=== PATIENT | male | born 1950 | race African-American/Black ===

== ENCOUNTER 2024-05-29 10:43 | Inpatient (IN) | payer OTHER ==
[2024-05-29 12:31] LABS: Absolute Basophils 0.1 K/uL (0-0.5); Absolute Lymphocytes (CBC) 0.6 K/uL (0.7-4.9); Absolute Monocytes 1.4 K/uL (0.1-1.3); Absolute Neutrophil 15.6 K/uL (1.8-8.0); Basophils % 0.3 % (0-1.3); Eosinophils % 0.2 % (0-4.4); Hematocrit 40.5 % (39.6-49.0); Hemoglobin 13.9 g/dL (13.6-17.9); Lymphocytes % 3.3 % (15.3-44.8); MCH 31.8 pg (27.0-35.0); MCHC 34.2 g/dL (32.0-36.0); MCV 92.8 fL (80-100); MPV 8.9 fL (7.6-11.3); Neutrophils % 88.2 % (41.7-73.7); Platelets 267 thou/uL (152-406); RBC Red Blood Cell Count 4.37 M/uL (4.33-5.43); Red Cell Distribution Width 13.9 % (12.1-15.2)
[2024-05-29 12:50] LABS: Albumin 3.1 g/dL (3.4-5.0); Albumin/Globulin Ratio 0.8 (1.1-1.8); Anion Gap 8.2 mEq/L (5.0-15.0); Globulin 4.1 g/dL (2.3-3.5); Protein, Total 7.2 g/dL (6.4-8.2)
[2024-05-29 12:51] LABS: Potassium 4.2 mEq/L (3.5-5.1)
[2024-05-29 13:25] LABS: Blood Morphology Comment NOT SEEN (NOT SEEN); Platelet Estimate ADEQ; White Blood Cell Scan OK (OK)
[2024-05-29 13:32] LABS: Specific Gravity 1.029 (1.005-1.030); Sqamous Epithelial <5 /HPF (None Seen); Transitional Epithelial <5 /HPF (None Seen); Urine Bacteria >50 /HPF (<20); Urine Bilirubin NEGATIVE (Negative); Urine Blood 2+ (Negative); Urine Clarity Extremely Turbid (Clear); Urine Color Yellow (Yellow); Urine Culture Reflex Order REFLEXED; Urine Glucose NEGATIVE (Negative); Urine Ketones NEGATIVE (Negative); Urine Microscopic Reflex YN ORDER UMIC; Urine Nitrite 2+ (Negative); Urine Protein 1+ (Negative); Urine Urobilinogen 1+ (Normal); Urine WBC >50 /HPF (<5); Urine pH 5.5 (5.0-7.0)
--- NOTE | 2024-05-29 14:06 | RAD REPORT ---
EXAMINATION: CT Abdomen Pelvis W Contrast CLINICAL INDICATION: Male, 74 years old. lower abd pain, urinary symptoms, hematuria TECHNIQUE: CT abdomen and pelvis was performed, after the administration of IV contrast, as per [facility] protocol. Axial, sagittal and coronal reconstructions were obtained. One or more of the following dose reduction techniques were used: Automated exposure control, adjustment of the mA and k V according to patient size, and iterative reconstruction. Unless otherwise specified, incidental findings do not require dedicated imaging follow-up. COMPARISON: None available FINDINGS: LOWER CHEST: The visualized lung bases are clear. Elevation of the right hemidiaphragm. LIVER: Normal in size and contour. Numerous fluid density lesions and other smaller lesions less than 1 cm, may suggest cysts. The largest lesions are in the right liver lobe, showing bilobed appearance, measuring 1.4-1.5 cm. No suspicious focal lesion. BILIARY SYSTEM: Gallbladder is somewhat decompressed limiting evaluation. Prominent common bile duct measuring up to 8 mm in caliber. SPLEEN: Normal size. No focal lesion. PANCREAS: Prominent caliber of the main pancreatic duct measuring 5 mm. An accessory mildly prominent duct extending superiorly in the region of the head as well. No mass, cyst, or joseph-pancreatic fluid. ADRENALS: Normal; no mass. KIDNEYS: Normal size and contour. No hydronephrosis. Nonobstructing left superior pole 3 mm calculus. Few vascular calcifications noted URINARY BLADDER: Unremarkable. GASTROINTESTINAL TRACT: No evidence of free air, significant intra-abdominal free fluid, bowel obstru ction or abscess. Moderate stool burden throughout the colon. Nonspecific fluid opacification of nondistended small bowel loops in the pelvis. APPENDIX: Normal appendix. LYMPH NODES: No lymphadenopathy. MUSCULOSKELETAL: No acute or suspicious osseous abnormality. ADDITIONAL FINDINGS: Prostatomegaly. Vascularized exophytic skin lesion in the right groin at the bas e of the scrotum with frond-like projections, measuring 4.8 x 3.7 cm in greatest transverse and AP dimensions, and 5.9 cm in greatest clinical extent. IMPRESSION: Nonspecific fluid opacification of nondistended small bowel loops in the pelvis, may reflect diarrhea l state or mild enteritis. Moderate stool burden in the colon. Prominent caliber of the common bile duct and main pancreatic duct. Please correlate with bilirubin l evels. If there is suspicion for distal obstruction, consider gastroenterology evaluation, to determine if MRCP or ERCP is needed. Vascularized exophytic skin lesion in the right groin with frond-like projections as above, may repre sent a hemangioma or other benign entity.
--- NOTE | 2024-05-29 14:15 | ER ---
Nurse's Notes [facility] Name: Lopez Oneill Age: 74 yrs Sex: Male : 1950 Arrival Date: 05/29/2024 Time: 10:43 Bed 16 Private MD: Diagnosis: Acute prostatitis;Localized swelling, mass and lump, right lower limb Presentation: 05/29 10:58 Chief complaint: Patient states: blood in urine and pain with urination X 1 week and iw also I had a cyst in my groin area. Coronavirus screen: At this time, the client does not indicate any symptoms associated with coronavirus-19. Ebola Screen: No symptoms or risks identified at this time. Initial Sepsis Screen: Does the patient meet any 2 criteria? No. Patient's initial sepsis screen is negative. Does the patient have a suspected source of infection? No. Patient's initial sepsis screen is negative. Risk Assessment: Do you want to hurt yourself or someone else? Patient reports no desire to harm self or others. Onset of symptoms was May 22, 2024. 10:58 Method Of Arrival: Wheelchair iw 10:58 Acuity: TRI 3 iw Triage Assessment: 16:18 General: Behavior is calm. db Historical: - Allergies: 11:01 No Known Allergies; iw - Home Meds: 11:02 None [Active]; iw - PMHx: 11:01 None; iw - Immunization history:: Adult Immunizations not up to date. - Infectious Disease History:: Denies. - Social history:: Smoking status: Patient reports the use of cigarette tobacco products, smokes one pack cigarettes per day. - Family history:: not pertinent. - Hospitalizations: : No recent hospitalization is reported. Screenin:29 [facility] ED Fall Risk Assessment (Adult) History of falling in the last 3 months, iw including since admission No falls in past 3 months (0 pts) Confusion or Disorientation No (0 pts) Intoxicated or Sedated No (0 pts) Impaired Gait No (0 pts) Mobility Assist Device Used No (0 pt) Altered Elimination No (0 pt) Score/Fall Risk Level 0 - 2 = Low Risk Oriented to surroundings, Maintained a safe environment. Abuse screen: Denies threats or abuse. Denies injuries from another. Nutritional screening: No deficits noted. Tuberculosis screening: No symptoms or risk factors identified. Assessment: 12:20 General: Appears in no apparent distress. comfortable. Neuro: Level of Consciousness is iw awake, alert, obeys commands, Oriented to person, place, time, situation. Respiratory: Airway is patent Respiratory effort is even, unlabored, Respiratory pattern is regular, symmetrical. GI: Reports lower abdominal pain. 12:28 Reassessment: Patient appears in no apparent distress at this time. Patient and/or iw family updated on plan of care and expected duration. Pain level reassessed. Patient is alert, oriented x 3, equal unlabored respirations, skin warm/dry/pink. 15:04 Reassessment: Patient appears in no apparent distress at this time. Patient and/or db family updated on plan of care and expected duration. Pain level reassessed. Patient is alert, oriented x 3, equal unlabored respirations, skin warm/dry/pink. AIR BRAKE MAN JOEY AT PATIENT BEDSIDE. Vital Signs: 10:58 BP 130 / 90; Pulse 100; Resp 18; Temp 98.5; Pulse Ox 100% on R/A; iw 11:00 Weight 68.04 kg; Height 5 ft. 10 in. ; iw 13:38 BP 158 / 100; Pulse 90; Resp 16; Pulse Ox 98% on R/A; db 14:00 BP 144 / 88; Pulse 86; Resp 18; Pulse Ox 98% on R/A; db 14:30 BP 153 / 98; Pulse 90; Resp 18; Pulse Ox 98% on R/A; db 15:00 BP 132 / 87; Pulse 87; Resp 18; Pulse Ox 97% ; db 16:00 BP 146 / 86; Pulse 87; Resp 16; Pulse Ox 98% on R/A; db 11:00 Body Mass Index 21.52 (68.04 kg, 177.8 cm) iw Vitals: 15:03 Cardiac Rhythm Assessment Regular Sinus rhythm. db ED Course: 10:48 Patient arrived in ED. ra3 10:50 Adam Cummins MD is Attending Physician. rn 11:00 Triage completed. iw 11:01 Arm band placed on. iw 11:31 Carol Seth, RN is Primary Nurse. db 11:31 CBC with Diff Sent. bc6 11:31 CMP Sent. bc6 11:31 Missed attempt(s): 20 gauge in left forearm. Bleeding controlled, band aid applied, bc6 catheter tip intact. 12:18 Patient has correct armband on for positive identification. Bed in low position. Call iw light in reach. Side rails up X 1. Pillow given. 12:18 Missed attempt(s): 22 gauge in left forearm. Bleeding controlled, band aid applied, iw catheter tip intact. 12:24 Initial lab(s) drawn, by me, sent to lab. Inserted saline lock: 22 gauge in left iw forearm, using aseptic technique. Blood collected. Flushed with 10 mL NS. 12:[address] via wheelchair. iw 13:01 CT Abd/Pelvis - IV Contrast Only In Process Unspecified. EDMS 14:14 Colton Aragon MD is Hospitalizing Provider. rn 15:03 First set of blood cultures drawn by lab staff. Second set of blood cultures drawn by db lab staff. 16:17 Provided Education on: ADMISSION. Client placed on continuous cardiac and pulse db oximetry monitoring. NIBP monitoring applied. shelter monitor on. Pulse ox on. NIBP on. 16:17 No provider procedures requiring assistance completed. Patient admitted, IV remains in db place. Administered Medications: 14:55 Drug: Rocephin IV 1 grams IV at calculated rate once; Given slow IV push per pharmacy db instructions Route: IV; Rate: calculated rate; Site: left forearm; 15:30 Follow up: Response: No adverse reaction; IV Status: Completed infusion; IV Intake: 50mldb Medication: 12:53 VIS not applicable for this client. iw Intake: 15:30 IV: 50ml; Total: 50ml. db Outcome: 14:14 Decision to Hospitalize by Provider. rn 16:17 Admitted to ER Hold. Please see [facility] for further documentation. db 16:17 Condition: stable 16:17 Instructed on the need for admit, 16:19 Patient left the ED. db Signatures: Dispatcher [employer] EDSandra Mejia, Adam Sheridan RN, MD MD rn Benton, Danielle, RN RN db Lissa Sanchez 6 Chiquita Jimenez ra3
--- NOTE | 2024-05-29 14:15 | EDPHYS ---
Physician Documentation [facility] Name: Lopez Oneill Age: 74 yrs Sex: Male : 1950 Arrival Date: 05/29/2024 Time: 10:43 Bed 16 Private MD: ED Physician Adam Cummins HPI: 05/29 12:04 This 74 yrs old Black Male presents to ER via Wheelchair with complaints of Blood in rn urine with abd pain. 12:04 The patient presents with urinary symptoms, urinary frequency. Onset: The rn symptoms/episode began/occurred 1 week(s) ago. Modifying factors: The symptoms are alleviated by nothing, the symptoms are aggravated by urinating. Associated signs and symptoms: Pertinent positives: abdominal pain, hematuria, Pertinent negatives: fever. Severity of symptoms: At their worst the symptoms were mild, in the emergency department the symptoms are unchanged. The patient has not experienced similar symptoms in the past. The patient has not recently seen a physician. Historical: - Allergies: 11: No Known Allergies; iw - Home Meds: 11:02 None [Active]; iw - PMHx: 11: None; iw - Immunization history:: Adult Immunizations not up to date. - Infectious Disease History:: Denies. - Social history:: Smoking status: Patient reports the use of cigarette tobacco products, smokes one pack cigarettes per day. - Family history:: not pertinent. - Hospitalizations: : No recent hospitalization is reported. ROS: 12:04 Constitutional: Negative for fever, chills, and weight loss, Cardiovascular: Negative rn for chest pain, palpitations, and edema, Respiratory: Negative for shortness of breath, cough, wheezing, and pleuritic chest pain, Abdomen/GI: Positive for lower abdominal pain Back: Negative for injury and pain, : Positive for intermittent hematuria with dysuria and increased urinary frequency MS/Extremity: Negative for injury and deformity, Neuro: Negative for headache, weakness, numbness, tingling, and seizure, Exam: 12:04 Constitutional: This is a well developed, well nourished patient who is awake, alert, rn and in no acute distress. Cardiovascular: Regular rate and rhythm. No pulse deficits. Respiratory: No increased work of breathing, no retractions or nasal flaring. Abdomen/GI: Soft, mild suprapubic tenderness. No rebound or guarding. Skin: Large fungating mass right inguinal region that abuts scrotum but does not involve the scrotum proper. MS/ Extremity: Pulses equal, no cyanosis. Neuro: Awake and alert, GCS 15 14:59 ECG was reviewed by the Attending Physician. rn Vital Signs: 10:58 BP 130 / 90; Pulse 100; Resp 18; Temp 98.5; Pulse Ox 100% on R/A; iw 11:00 Weight 68.04 kg; Height 5 ft. 10 in. ; iw 13:38 BP 158 / 100; Pulse 90; Resp 16; Pulse Ox 98% on R/A; db 14:00 BP 144 / 88; Pulse 86; Resp 18; Pulse Ox 98% on R/A; db 14:30 BP 153 / 98; Pulse 90; Resp 18; Pulse Ox 98% on R/A; db 15:00 BP 132 / 87; Pulse 87; Resp 18; Pulse Ox 97% ; db 16:00 BP 146 / 86; Pulse 87; Resp 16; Pulse Ox 98% on R/A; db 11:00 Body Mass Index 21.52 (68.04 kg, 177.8 cm) iw MDM: 10:50 Medical Screening Exam initiated rn 14:13 Differential diagnosis: nonspecific abdominal pain, UTI, prostatitis, Skin malignancy rn right inguinal region. Data reviewed: vital signs, nurses notes, lab test result(s), radiologic studies, CT scan, and as a result, I will admit patient. Consideration of Admission/Observation Patient was admitted/placed on observation. Escalation of care including admission/observation considered. Counseling: I had a detailed discussion with the patient and/or guardian regarding the historical points, exam findings, and any diagnostic results supporting the discharge/admit diagnosis, lab results, radiology results, the need for further work-up and treatment in the hospital. Response to treatment: the patient's symptoms have mildly improved after treatment, and as a result, I will admit patient. 05/29 11:02 Order name: CBC with Diff; Complete Time: 13:27 rn 05/29 11:02 Order name: CMP; Complete Time: 13:27 rn 05/29 11:02 Order name: Urinalysis w/ reflexes; Complete Time: 13:56 rn 05/29 12:49 Order name: CBC Smear Scan; Complete Time: 13:27 EDMS 05/29 13:36 Order name: Urine Culture [facility] 05/29 13:57 Order name: Blood Culture Adult (2) rn 05/29 13:57 Order name: Lactate w/ 2H reflex if indic. rn 05/29 13:57 Order name: Protime (+inr) rn 05/29 13:57 Order name: Ptt, Activated rn 05/29 14:40 Order name: CBC with Automated Diff [facility] 05/29 14:40 Order name: CBC with Automated Diff [facility] 05/29 14:40 Order name: Comprehensive Metabolic Panel [facility] 05/29 14:40 Order name: Comprehensive Metabolic Panel [facility] 05/29 14:40 Order name: Procalcitonin [facility] 05/29 14:40 Order name: Procalcitonin [facility] 05/29 14:40 Order name: PSA Screen [facility] 05/29 14:40 Order name: PSA Screen [facility] 05/29 11:02 Order name: CT Abd/Pelvis - IV Contrast Only; Complete Time: 14:12 05/29 13:57 Order name: EKG; Complete Time: 13:58 05/29 11:02 Order name: IV Saline Lock; Complete Time: 12:27 rn 05/29 11:02 Order name: Labs collected and sent; Complete Time: 11:31 rn 05/29 11:52 Order name: Labs - recollect needed: recollect lavender and green top; Complete Time: bd 12:27 05/29 13:57 Order name: Cardiac monitoring; Complete Time: 15:02 rn 05/29 13:57 Order name: EKG - Nurse/Tech; Complete Time: 15:02 rn 05/29 13:57 Order name: IV Saline Lock - Large Bore; Complete Time: 15:02 rn 05/29 13:57 Order name: O2 Per Protocol; Complete Time: 15:02 rn 05/29 13:57 Order name: O2 Sat Monitoring; Complete Time: 15:02 rn 05/29 13:57 Order name: Vital Signs; Complete Time: 15:02 rn EC:59 Rate is 85 beats/min. Rhythm is regular. QRS [place] is Normal. VA interval is normal. QRS rn interval is normal. QT interval is normal. No Q waves. T waves are Normal. No ST changes noted. Clinical impression: Normal ECG. Interpreted by me. Reviewed by me. Administered Medications: 14:55 Drug: Rocephin IV 1 grams IV at calculated rate once; Given slow IV push per pharmacy db instructions Route: IV; Rate: calculated rate; Site: left forearm; 15:30 Follow up: Response: No adverse reaction; IV Status: Completed infusion; IV Intake: 50mldb Disposition Summary: 05/29/24 14:14 Hospitalization Ordered Notes: Hospitalization Status: Inpatient Admission rn Provider: Colton Aragon rn Location: Telemetry/MedSurg (Inpatient) rn Condition: Stable rn Problem: new rn Symptoms: have improved rn Bed/Room Type: Standard rn Room Assignment: 207(05/29/24 15:02) bd Diagnosis - Acute prostatitis rn - Localized swelling, mass and lump, right lower limb rn Forms: - Medication Reconciliation Form rn - SBAR form rn - Leadership Thank You Letter rn Signatures: Dispatcher [employer] [facility] Lila Estrada Irene, RN RN iw Nieto, Roman, MD MD rn Benton, Danielle, RN RN db Corrections: (The following items were deleted from the chart) 12:49 12:43 Slides for Pathologist Review ordered. [facility] 13:12 12:04 Constitutional: This is a well developed, well nourished patient who is awake, rn alert, and in no acute distress. Cardiovascular: Regular rate and rhythm. No pulse deficits. Respiratory: No increased work of breathing, no retractions or nasal flaring. Abdomen/GI: Soft, mild suprapubic tenderness. No rebound or guarding. MS/ Extremity: Pulses equal, no cyanosis. Neuro: Awake and alert, GCS 15 rn 15:02 13:57 Accucheck ordered. rn db 15:02 14:14 rn bd
[2024-05-29] MEDS ORDERED: HYDROMORPHONE HCL 0.5 MG/0.5 ML INJ IV PRN (14:34)
[2024-05-29] MEDS ORDERED: ACETAMINOPHEN 500 MG TAB PO PRN (14:34)
[2024-05-29] MEDS ORDERED: ONDANSETRON 4 MG/2 ML VIAL IV PRN (14:34)
[2024-05-29] MEDS ORDERED: MORPHINE 2 MG/ML SYR IV PRN (14:34)
[2024-05-29] MEDS ORDERED: CEFTRIAXONE 1000 MG/VIAL ONE (14:36)
[2024-05-29] MEDS ORDERED: NA CHLORIDE 0.9% 50 ML ONE (14:36)
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
[2024-05-29] MEDS: Levofloxacin 750mg IV 750 MG/150 ML BAG IV SCH (15:00)
[2024-05-29 15:29] LABS: PT Prothrombin Time 11.8 SECONDS (9.4-12.5); PTT, Activated Partial Thromb 29.8 SECONDS (24.3-36.9); Protime INR 1.13
[2024-05-29] MEDS: NA CHLORIDE 0.9% 1,000 ML IV SCH (16:56)
[2024-05-29] MEDS: VANCOMYCIN 1.25 GM in NA CHLORIDE 0.9% 250 ML IVPB SCH (16:57)
[2024-05-29] MEDS: levoFLOXacin 750 MG TAB PO SCH (23:09)
[2024-05-30] MEDS: HYDROCODONE/APAP 10/325 TAB PO PRN (03:43)
[2024-05-30 06:23] LABS: Absolute Basophils 0.1 K/uL (0-0.5); Absolute Eosinophils 0.2 K/uL (0-0.5); Absolute Lymphocytes (CBC) 0.7 K/uL (0.7-4.9); Absolute Monocytes 1.5 K/uL (0.1-1.3); Absolute Neutrophil 9.9 K/uL (1.8-8.0); Albumin 2.6 g/dL (3.4-5.0); Albumin/Globulin Ratio 0.7 (1.1-1.8); Basophils % 0.9 % (0-1.3); Bilirubin Total 0.9 mg/dL (0.2-1.0); Eosinophils % 1.7 % (0-4.4); Globulin 3.7 g/dL (2.3-3.5); Hematocrit 31.6 % (39.6-49.0); Hemoglobin 10.6 g/dL (13.6-17.9); Lymphocytes % 5.8 % (15.3-44.8); MCH 31.1 pg (27.0-35.0); MCHC 33.7 g/dL (32.0-36.0); MCV 92.3 fL (80-100); MPV 9.8 fL (7.6-11.3); Monocytes % 12.4 % (3.3-12.3); Neutrophils % 79.2 % (41.7-73.7); Platelets 241 thou/uL (152-406); Protein, Total 6.3 g/dL (6.4-8.2); RBC Red Blood Cell Count 3.42 M/uL (4.33-5.43); Red Cell Distribution Width 13.8 % (12.1-15.2)
--- NOTE | 2024-05-30 15:58 | P.PN ---
Subjective Date of Service: 05/30/24 Chief Complaint: Dysuria x 4 days Subjective: No new changes Review of Systems 10-point ROS is otherwise unremarkable General: As per HPI Eyes: Unremarkable ENT: Unremarkable Respiratory: Unremarkable Cardiovascular: Unremarkable Gastrointestinal: Unremarkable Genitourinary: Dysuria, Other (post void, "maybe a little sore" when asked about rectal pain) Musculoskeletal: Unremarkable Integumentary: Unremarkable Neurological: Unremarkable Lymphatics: Unremarkable Physical Examination - Vital Signs Temperature: 98.2 F Blood Pressure: 113/65 Pulse: 85 Respirations: 20 Pulse Ox (%): 95 - Physical Exam General: Alert, In no apparent distress, Oriented x3 HEENT: Atraumatic, Normocephalic Neck: Supple Respiratory: Clear to auscultation bilaterally, Other (Pectus carinatum) Cardiovascular: Normal pulses, Regular rate/rhythm Capillary refill: <2 Seconds Gastrointestinal: Normal bowel sounds, Tenderness (Lower abdomen and suprapubic area) Musculoskeletal: No clubbing, No swelling Integumentary: Other (Condyloma to right groin) Neurological: Normal speech, Normal tone, Normal affect Lymphatics: No axilla or inguinal lymphadenopathy External genitalia: Deferred Rectal: Deferred - Studies Microbiology Data (last 24 hrs): 05/29/24 14:30 Blood - Blood Anaerobic Blood Culture - Final Assessment And Plan - Plan UTI/acute prostatitis Patient does not appear excessively ill Urine culture 4+ gram-negative rods Blood cultures 1 of 2 pending aerobic positive IV antibiotics Vanco n.p.o. Levaquin as IV Levaquin not available at this facility at the moment; follow cultures and change based on sensitivities Avoid constipation Stool softeners as needed PSA is greater than [address] Castano will be consulted, avoid Strict I&O Condyloma Follow-up outpatient for possible laser/desiccant treatment High blood pressure without current history of hypertension Patient used to take lisinopril, monitor and trend VTE/GI prophylaxis Discharge Plan: Home Plan to discharge in: 48 Hours - Code Status/Comfort Care Code Status Assessed: Yes (full) Critical Care: No
--- NOTE | 2024-05-30 16:17 | CON ---
Date of Consultation: 05/30/2024 Reason For Consultation: Growth, right groin. History Of Present Illness: The patient is a 74-year-old gentleman, who is brought into the hospital from the ER with UTI. He had dysuria for 4 days. The patient also has a growth in his right groin, which has been present for a couple of months. It is a fungating mass at the base of his penis and scrotum, it is getting larger. We were asked to evaluate this patient to make further recommendation . The patient does have a history of multiple sexual partners in the past, but none recently. Review of Systems: Otherwise unremarkable. Past Medical History: Significant for herniated disk. Past Surgical History: Back surgery. Allergies: DEMEROL. Social History: The patient does smoke, has been counseled. The patient denies drinking alcohol. Family History: Significant for hypertension. Physical Examination: Vital Signs: Stable. Currently, T-max is 99.1. General: He is awake and alert. Neck: No neck masses. No JVD. Throat clear. Neck is supple. Chest: Clear. Heart: S1, S2. Abdomen: Soft. Extremities: Neurovascularly intact. Neurologic: Nonfocal. : Approximately a 6 x 4 cm exophytic growth at the base of the penis and right hemiscrotum on the right side involving the skin of the penis as well as the scrotum. Laboratory Data: Reviewed. White count is 12.4 today, was 17.7. Chemistry reviewed. Urinalysis: Cultures growing gram-negative anupama. Etiology has not been identified yet. 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 Recommendations: Antibiotics per the hospitalist and management of the UTI. As far as the mass is c oncerned, I would recommend evaluation by urologist as the base of the mass is on the penis and scrot um, and the patient would need a wide excision and may compromise the function of the penis, and it s hould be handled in my opinion by urologist. Plan of care discussed with Dr. Syed. EMERALD/ANNA MARIE Voice ID: [id number] Report ID: [id number]
[2024-05-30 16:56] VITALS: BMI 21.5
--- NOTE | 2024-05-30 17:11 | CON ---
History Of Present Illness: This is a 74-year-old male, I was consulted for urinary tract infection secondary to gram-negative rods, the sensitivity and specificity is pending. Patient was brought int o the hospital with complaint of hematuria and discomfort during urination and nocturia. Patient den ies any nausea, vomiting. Also has abdominal pain and fevers. Denies any other problems. Past Medical History: Noncontributory. Past Surgical History: Noncontributory. Social History: Nonsmoker. Nondrinker. Family History: Noncontributory. Current Medications: Includes vancomycin and Levaquin. See MARs for other medications. Allergies: TO MEPERIDINE. Review of Systems: A 10-point review was performed. Physical Examination: General: This is a 74-year-old male, lying in bed, not in any acute cardiopulmonary distress. Vital Signs: Temperature 97.9, pulse 71, respirations 20, blood pressure 139/81. HEENT: Unremarkable. Neck: Supple. Lungs: Basal crackles. Heart: S1, S2. Abdomen: Soft, nontender. Bowel sounds present. Extremities: No edema. Laboratory Data: Shows WBC 12,000 down from 17,000, hemoglobin 10.6, platelets are 241. Chemistry s hows BUN of 19, creatinine 0.6, albumin level of 3.1. Micro data: Blood cultures are pending. Urin e culture growing gram-negative rods. CT abdomen and pelvis is showing nonspecific fluid opacificati on of nondistended small bowel loops, prominent caliber of the common bile duct, main pancreatic duct with the visualized exophytic skin lesions in the right groin with frond like projections. Assessment And Plan: Urosepsis secondary to gram-negative rods. Cultures are pending for sensitivit y and specificity. Leukocytosis, improving. Moderate protein-calorie malnourishment. Patient is cu rrently being treated with vancomycin and Levaquin. Consider discontinuing vancomycin. Continue ant ibiotic, pending culture results. If no bacteremia, can be treated for 5 days. Continue hydration a nd nutritional support. We will follow the patient as needed. Thank you, Dr. Syed, for consult. NF/MODL Voice ID: [id number] Report ID: [id number]
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
[2024-05-31] MEDS: NICOTINE 21 MG/PAT TD SCH (05:09)
[2024-05-31 07:03] LABS: Albumin 2.5 g/dL (3.4-5.0); Albumin/Globulin Ratio 0.7 (1.1-1.8); Bilirubin Total 0.4 mg/dL (0.2-1.0); Globulin 3.7 g/dL (2.3-3.5); Protein, Total 6.2 g/dL (6.4-8.2)
[2024-05-31 07:04] LABS: Absolute Eosinophils 0.3 K/uL (0-0.5); Absolute Neutrophil 4.1 K/uL (1.8-8.0); Basophils % 0.6 % (0-1.3); Eosinophils % 5.2 % (0-4.4); Hematocrit 32.1 % (39.6-49.0); Hemoglobin 10.9 g/dL (13.6-17.9); Lymphocytes % 15.8 % (15.3-44.8); MCH 31.2 pg (27.0-35.0); MCHC 33.9 g/dL (32.0-36.0); MCV 92.2 fL (80-100); MPV 9.5 fL (7.6-11.3); Monocytes % 15.8 % (3.3-12.3); Neutrophils % 62.6 % (41.7-73.7); Platelets 239 thou/uL (152-406); RBC Red Blood Cell Count 3.48 M/uL (4.33-5.43); Red Cell Distribution Width 13.2 % (12.1-15.2)
--- NOTE | 2024-05-31 07:54 | P.PN ---
Date of Service: 05/31/24 Subjective Date of Service: 05/31/24 Chief Complaint: Dysuria x 4 days Subjective: No new changes Review of Systems 10-point ROS is otherwise unremarkable General: As per HPI Eyes: Unremarkable ENT: Unremarkable Respiratory: Unremarkable Cardiovascular: Unremarkable Gastrointestinal: Unremarkable Genitourinary: Dysuria, Other (post void, "maybe a little sore" when asked about rectal pain) Musculoskeletal: Unremarkable Integumentary: Unremarkable Neurological: Unremarkable Lymphatics: Unremarkable Physical Examination - Vital Signs reviewed, blood pressure controlled, afebrile - Physical Exam General: Alert, In no apparent distress, Oriented x3 HEENT: Atraumatic, Normocephalic Neck: Supple Respiratory: Clear to auscultation bilaterally, Other (Pectus carinatum) Cardiovascular: Normal pulses, Regular rate/rhythm Capillary refill: <2 Seconds Gastrointestinal: Normal bowel sounds, Tenderness (Lower abdomen and suprapubic area) Musculoskeletal: No clubbing, No swelling Integumentary: Other (Condyloma to right groin) Neurological: Normal speech, Normal tone, Normal affect Lymphatics: No axilla or inguinal lymphadenopathy External genitalia: Deferred Rectal: Deferred Assessment And Plan UTI/acute prostatitis Patient does not appear excessively ill Urine culture 4+ gram-negative rods - ESBL E. coli Blood cultures 1 of 2 pending aerobic positive gram neg rods - awaiting pathogen IV antibiotics Vanco and p.o. Levaquin as IV Levaquin not available at this facility at the moment; follow cultures and change based on sensitivities Avoid constipation Stool softeners as needed PSA is greater than 30 Dr. Castano consulted for LUTS/UTI/elevated PSA. Would like evaluation for prostate abscess if pt not improving. Mr. Oneill has remained afebrile, nontoxic-appearing. White count down from 17 to 6.5 with vancomycin and Levaquin. Urine culture returned with ESBL E. coli. Resistant to Levaquin. Will change to Merrem. Patient will need long-term IV antibiotics (Merrem) but will withhold PICC until bacteremia ruled out. 1 of 2 cultures positive for gram-negative rods. Will need to await final culture results. Strict I&O Postvoid residual, if greater than 400-[address] [place]er. Condyloma/mass Follow-up outpatient for possible laser/desiccant treatment Dr. Padilla evaluated mass and feels it would be better managed per urology Dr. Castano evaluated pt and recommends vascular/general surgery for mass as it appears vascular per CT High blood pressure without current history of hypertension Patient used to take lisinopril, monitor and trend Blood pressure controlled VTE/GI prophylaxis Discharge Plan: Home Plan to discharge in: 48 Hours - Code Status/Comfort Care Code Status Assessed: Yes (full) Critical Care: No
[2024-05-31] MEDS: Meropenem 1,000 MG in NA CHLORIDE 0.9% 100 ML IV SCH (08:51)
[2024-05-31 10:56] LABS: Band Neutrophils 2 % (0-1); Blood Morphology Comment NOT SEEN (NOT SEEN); Differential Total Cells Count 100; Eosinophils 3 % (0-3); Lymphocytes 16 % (15-42); Monocytes 13 % (0-10); Platelet Estimate ADEQ; Segmented Neutrophils 64 % (40-80)
--- NOTE | 2024-05-31 16:43 | PN ---
Subjective: The patient is lying in bed. No new acute event. Chart reviewed. Objective: Vital signs: Reviewed. Lungs: Basal crackles. Heart: S1, S2. Regular. Abdomen: Soft, nontender. Bowel sounds present. Extremities: No edema. Laboratory Data: WBC 6.5, down from 12,000; hemoglobin 10.9; platelets are 239. Chemistry shows BU N of 22, creatinine 0.5. Micro data; E coli ESBL in the urine and blood cultures are positive for gr am-negative rods. Sensitivity and specificity pending. Assessment And Plan: Extended-spectrum beta-lactamase Escherichia coli bacteremia and urosepsis. Co ntinue 14 days of meropenem. He will be switched to Invanz on discharge to complete the course with daily dosing. Leukocytosis is improved. We will follow the patient as needed. NF/MODL Voice ID: [id number] Report ID: [id number]
[2024-05-31] MEDS: TAMSULOSIN 0.4 MG SR CAP PO SCH (20:34)
--- NOTE | 2024-06-01 12:02 | EKG ---
Test Date: 2024-05-29 Test Time: 14:55:08 Press Bucker: SASHA MEASUREMENT RESULTS: Intervals: Rate: 85 AL: 148 QRSD: 70 QT: 358 QTc: 426 [place]: P: 81 AL: 148 QRS: 39 T: 90 INTERPRETIVE STATEMENTS: Normal sinus rhythm Normal ECG Compared to ECG 03/21/2015 11:59:30 No significant changes Electronically Signed On 06-01-24 12:00:28 CONCRETE GRINDER OPERATOR by See Hopson
--- NOTE | 2024-06-01 12:30 | P.PN ---
Date of Service: 06/01/24 Subjective Date of Service: 05/31/24 Chief Complaint: Dysuria x 4 days Subjective: No new changes Review of Systems 10-point ROS is otherwise unremarkable General: As per HPI Eyes: Unremarkable ENT: Unremarkable Respiratory: Unremarkable Cardiovascular: Unremarkable Gastrointestinal: Unremarkable Genitourinary: Dysuria, Other (post void, "maybe a little sore" when asked about rectal pain) Musculoskeletal: Unremarkable Integumentary: Unremarkable Neurological: Unremarkable Lymphatics: Unremarkable Physical Examination - Vital Signs reviewed, blood pressure controlled, afebrile - Physical Exam General: Alert, In no apparent distress, Oriented x3 HEENT: Atraumatic, Normocephalic Neck: Supple Respiratory: Clear to auscultation bilaterally, Other (Pectus carinatum) Cardiovascular: Normal pulses, Regular rate/rhythm Capillary refill: <2 Seconds Gastrointestinal: Normal bowel sounds, Tenderness (Lower abdomen and suprapubic area) Musculoskeletal: No clubbing, No swelling Integumentary: Other (Condyloma to right groin) Neurological: Normal speech, Normal tone, Normal affect Lymphatics: No axilla or inguinal lymphadenopathy External genitalia: Deferred Rectal: Deferred Assessment And Plan UTI/acute prostatitis Patient does not appear excessively ill Urine culture 4+ gram-negative rods - ESBL E. coli Blood cultures 1 of 2 pending aerobic positive gram neg rods - awaiting pathogen IV antibiotics Vanco and p.o. Levaquin, changed on 05/31/24 to Merrem as UC shows E.coli ESBL - pt will need 14 day course second to bacteremia. Dr. Faustin following Avoid constipation Stool softeners as needed PSA is greater than 30, Dr. Castano following Dr. Castano consulted for LUTS/UTI/elevated PSA. Would like evaluation for prostate abscess if pt not improving. Mr. Oneill has remained afebrile, nontoxic-appearing. White count down from 17 to 6.5 with vancomycin and Levaquin. Urine culture returned with ESBL E. coli. Resistant to Levaquin. Will change to Merrem. Patient will need long-term IV antibiotics (Merrem) but will withhold PICC until bacteremia ruled out. 1 of 2 cultures positive for gram-negative rods. Will need to await final culture results. Strict I&O Postvoid residual, if greater than 400-[address] Condyloma/mass Dr. Padilla evaluated mass and feels it would be better managed per urology Dr. Castano evaluated pt and recommends vascular/general surgery for mass as it appears vascular per CT The surgical team above will do procedure together on Wednesday06/06/24 High blood pressure without current history of hypertension Patient used to take lisinopril, monitor and trend Blood pressure controlled VTE/GI prophylaxis Discharge Plan: Home Plan to discharge in: 48 Hours - Code Status/Comfort Care Code Status Assessed: Yes (full) Critical Care: No <Caitlin Barros - Last Filed: 06/01/24 13:00> Patient seen and examined, plan of care discussed with Ms. Barros. ESBL E. coli UTI and E. coli bacteremia. Patient has clinically improved. Continue IV meropenem. Patient slated for outpatient IV Invanz. Regarding right groin/scrotal condylomatous mass, general surgery Dr. Padilla and urology Dr. Castano evaluating for possible surgery. PICC line for outpatient IV antibiotics once repeat blood culture does not show any growth. <mike roa - Last Filed: 06/01/24 18:54>
--- NOTE | 2024-06-01 17:50 | PN ---
Subjective: Patient is lying in bed. No new acute event. Denies any headache, nausea, vomiting, ch est pain, abdominal pain, constipation, or diarrhea. Objective: Vital Signs: Temperature 98, pulse 78, respirations 16, blood pressure 140/80. Lungs: Clear to auscultation. Heart: S1, S2. Regular. Abdomen: Soft, nontender. Bowel sounds present. Extremity: No edema. Laboratory Data: Reviewed. Assessment And Plan: Bacteremia and urosepsis secondary to Escherichia coli extended-spectrum beta-l actamase. The patient is currently on meropenem. Repeat cultures are pending done today. We will f ollow the patient closely. Anemia of chronic disease. Leukocytosis, improved. Moderate protein-lora orie malnourishment. We will follow the patient as needed. NF/MODL Voice ID: [id number] Report ID: [id number]
[2024-06-02] MEDS: LACTULOSE 20 GM/30 ML UCUP PO ONE (09:35)
--- NOTE | 2024-06-02 12:15 | P.DS ---
Admission Date: 05/29/24 Discharge Date: 06/02/24 Disposition: DC HOME/HOME HEALTH CARE Discharge Condition: FAIR Reason for Admission: Dysuria x 4 days Consultations: Dr. Ramin Castano Brief History of Present Illness: Mr. Oneill is a 74-year-old male who denies any significant past medical history. He has no medication allergies and takes no daily medications. He worked at [employer] for 49 years and is now retired and is a "house ". Mr. Oneill has a 4-day history of dysuria, frequency, nocturia. He states he was scared to go to sleep as he knew he had some type of infection. Hospital Course: Mr. Oneill is thin but conditioned. He has been afebrile and does not appear septic. 1 of 2 blood cultures did grow E. coli and his urine has E. coli ESBL. He was started on Merrem but was unable to get a PICC/midline secondary to bacteremia. Repeat blood cultures are without growth at 24 hours, and I will request a midline placement. [facility] has been working on home health with [facility] for long-term antibiotics since yesterday. When those have been set up, we will give 1 dose of Invanz and then patient will be discharged home for continuation of Invanz daily with end date June 14, 2024. The mass to his right groin is tentatively set for removal with Dr. Castano and Dr. Padilla on Thursday June 06, 2024. Mr. Mixon is aware his PSA is greater than 30 and he is to follow-up with Dr. Manuel regarding that as well. Vital Signs/Physical Exam: Temp Pulse Resp BP Pulse Ox 97.9 F 74 12 148/83 H 98 06/02/24 08:00 06/02/24 08:00 06/02/24 08:00 06/02/24 08:00 06/02/24 08:00 Laboratory Data at Discharge: WBC 6.50 thou/uL (4.3-10.9) 05/31/24 06:30 Hgb 10.9 g/dL (13.6-17.9) L 05/31/24 06:30 Hct 32.1 % (39.6-49.0) L 05/31/24 06:30 Plt Count 239 thou/uL (152-406) 05/31/24 06:30 PT 11.8 SECONDS (9.4-12.5) 05/29/24 14:30 INR 1.13 05/29/24 14:30 APTT 29.8 SECONDS (24.3-36.9) 05/29/24 14:30 Sodium 137 mEq/L (136-145) 05/31/24 06:30 Potassium 4.0 mEq/L (3.5-5.1) 05/31/24 06:30 BUN 22 mg/dL (7-18) H 05/31/24 06:30 Creatinine 0.56 mg/dL (0.70-1.30) L 05/31/24 06:30 Glucose 84 mg/dL (74-106) 05/31/24 06:30 Total Bilirubin 0.4 mg/dL (0.2-1.0) 05/31/24 06:30 AST 19 U/L (15-37) 05/31/24 06:30 ALT 18 U/L (16-61) 05/31/24 06:30 Alkaline Phosphatase 78 U/L (45-117) D 05/31/24 06:30 Home Medications: NK [No Home Meds] 05/29/24 Diet: Regular Activity: Ad tico Followup: NONE,NONE [Primary Care Provider] - Brian Padilla MD [ACTIVE - CAN ADMIT] - Balaji Castano [ACTIVE - CAN ADMIT] -
--- NOTE | 2024-06-02 12:20 | P.PN ---
Date of Service: 06/02/24 Subjective Date of Service: 06/02/24 Chief Complaint: Dysuria x 4 days Subjective: No new changes, denies pain, no acute overnight events Review of Systems 10-point ROS is otherwise unremarkable General: As per HPI Eyes: Unremarkable ENT: Unremarkable Respiratory: Unremarkable Cardiovascular: Unremarkable Gastrointestinal: Unremarkable Genitourinary: Dysuria Musculoskeletal: Unremarkable Integumentary: Unremarkable Neurological: Unremarkable Lymphatics: Unremarkable Physical Examination - Vital Signs reviewed, blood pressure controlled, afebrile - Physical Exam General: Alert, In no apparent distress, Oriented x3 HEENT: Atraumatic, Normocephalic Neck: Supple Respiratory: Clear to auscultation bilaterally, Other (Pectus carinatum) Cardiovascular: Normal pulses, Regular rate/rhythm Capillary refill: <2 Seconds Gastrointestinal: Normal bowel sound present x 4 quadrants, negative tenderness Musculoskeletal: No clubbing, No swelling Integumentary: Other (Condyloma to right groin) Neurological: Normal speech, Normal tone, Normal affect Lymphatics: No axilla or inguinal lymphadenopathy External genitalia: Deferred Rectal: Deferred Assessment And Plan UTI/acute prostatitis Patient does not appear excessively ill Urine culture 4+ gram-negative rods - ESBL E. coli Blood cultures 1 of 2 pending aerobic positive gram neg rods - awaiting pathogen IV antibiotics Vanco and p.o. Levaquin, changed on 05/31/24 to Merrem as UC shows E.coli ESBL - pt will need 14 day course second to bacteremia. Dr. Faustin following -pending authorization for home health/IV antibiotics. Midline will be placed and patient will continue 14-day course of Invanz to complete on 06/14/2024 Avoid constipation Stool softeners as needed PSA is greater than 30, Dr. Castano following Dr. Castano consulted for LUTS/UTI/elevated PSA. Would like evaluation for prostate abscess if pt not improving. Mr. Oneill has remained afebrile, nontoxic-appearing. White count down from 17 to 6.5 with vancomycin and Levaquin. Urine culture returned with ESBL E. coli. Resistant to Levaquin. Will change to Merrem. Patient will need long-term IV antibiotics (Merrem) but will withhold PICC until bacteremia ruled out. 1 of 2 cultures positive for gram-negative rods. Will need to await final culture results. E. coli bacteremia present. Second set blood cultures done on 06/01/2024 with 24 hours negative. Will request midline Strict I&O Postvoid residual, if greater than 400-[address] Condyloma/mass Dr. Padilla evaluated mass and feels it would be better managed per urology Dr. Castano evaluated pt and recommends vascular/general surgery for mass as it appears vascular per CT The surgical team above will do procedure together on Wednesday06/06/24 High blood pressure without current history of hypertension Patient used to take lisinopril, monitor and trend Blood pressure controlled VTE/GI prophylaxis Discharge Plan: Home Plan to discharge in: 48 Hours - Code Status/Comfort Care Code Status Assessed: Yes (full) Critical Care: No
--- NOTE | 2024-06-02 17:53 | PN ---
Subjective: The patient is lying in bed. No new acute event. Chart reviewed. Objective: Vital Signs: Reviewed. Lungs: Clear to auscultation. Heart: S1, S2. Regular. Abdomen: Soft, nontender. Bowel sounds present. Extremities: No edema. Currently on meropenem. Laboratory Data: Reviewed. Assessment And Plan: Bacteremia secondary to Escherichia coli, urosepsis secondary to Escherichia co li extended-spectrum beta-lactamase. Continue meropenem for total of 14 days. We will follow the lisa martin as needed. NF/MODL Voice ID: [id number] Report ID: [id number]
[2024-06-02] MEDS: Mupirocin NASAL 2 APPL/1 GM TUBE NAS SCH (19:26)
--- NOTE | 2024-06-02 22:12 | RAD REPORT ---
EXAM: Chest Single View HISTORY: picc placement COMPARISON: None. FINDINGS: LUNGS/PLEURA: The lungs are clear. No pleural effusions or pneumothorax. No pulmonary edema. MEDIASTINUM: The mediastinal silhouette is within normal limits. CARDIAC: The cardiac silhouette is within normal limits. UPPER ABDOMEN: No significant abnormality. BONES: No acute abnormality. LINES/TUBES/OTHER: Left subclavian approach PICC with tip overlying the mid SVC. IMPRESSION: No evidence of acute cardiopulmonary disease. PICC tip in satisfactory position overlying the SVC.
[2024-06-03 05:49] LABS: Absolute Basophils 0.1 K/uL (0-0.5); Absolute Eosinophils 0.3 K/uL (0-0.5); Absolute Lymphocytes (CBC) 1.6 K/uL (0.7-4.9); Absolute Monocytes 0.6 K/uL (0.1-1.3); Absolute Neutrophil 4.6 K/uL (1.8-8.0); Basophils % 0.8 % (0-1.3); Eosinophils % 4.8 % (0-4.4); Hematocrit 32.8 % (39.6-49.0); Lymphocytes % 22.1 % (15.3-44.8); MCHC 33.7 g/dL (32.0-36.0); MCV 91.9 fL (80-100); MPV 8.3 fL (7.6-11.3); Monocytes % 8.6 % (3.3-12.3); Neutrophils % 63.7 % (41.7-73.7); Nucleated Red Blood Cells % 0.1 % (0-0); Platelets 305 thou/uL (152-406); RBC Red Blood Cell Count 3.56 M/uL (4.33-5.43); Red Cell Distribution Width 13.6 % (12.1-15.2)
[2024-06-03 05:59] LABS: Albumin 2.3 g/dL (3.4-5.0); Albumin/Globulin Ratio 0.6 (1.1-1.8); Anion Gap 8.1 mEq/L (5.0-15.0); Bilirubin Total 0.2 mg/dL (0.2-1.0); Globulin 3.6 g/dL (2.3-3.5); Potassium 4.1 mEq/L (3.5-5.1); Protein, Total 5.9 g/dL (6.4-8.2)
[2024-06-03] MEDS: ENOXAPARIN 30 MG/0.3 ML SQ SCH (09:50)
--- NOTE | 2024-06-03 10:27 | P.PN ---
Date of Service: 06/03/24 Subjective Date of Service: 06/03/24 Chief Complaint: Dysuria x 4 days Subjective: No new changes, denies pain, no acute overnight events Review of Systems 10-point ROS is otherwise unremarkable General: As per HPI Eyes: Unremarkable ENT: Unremarkable Respiratory: Unremarkable Cardiovascular: Unremarkable Gastrointestinal: Unremarkable Genitourinary: Dysuria Musculoskeletal: Unremarkable Integumentary: Unremarkable Neurological: Unremarkable Lymphatics: Unremarkable Physical Examination - Vital Signs reviewed, blood pressure controlled, afebrile - Physical Exam General: Alert, In no apparent distress, Oriented x3 HEENT: Atraumatic, Normocephalic Neck: Supple Respiratory: Clear to auscultation bilaterally, Other (Pectus carinatum) Cardiovascular: Normal pulses, Regular rate/rhythm Capillary refill: <2 Seconds Gastrointestinal: Normal bowel sound present x 4 quadrants, negative tenderness Musculoskeletal: No clubbing, No swelling Integumentary: Other (Condyloma to right groin) Neurological: Normal speech, Normal tone, Normal affect Lymphatics: No axilla or inguinal lymphadenopathy External genitalia: Deferred Rectal: Deferred Assessment And Plan UTI/acute prostatitis Patient does not appear excessively ill Urine culture 4+ gram-negative rods - ESBL E. coli Blood cultures 1 of 2 pending aerobic positive gram neg rods - awaiting pathogen IV antibiotics Vanco and p.o. Levaquin, changed on 05/31/24 to Merrem as UC shows E.coli ESBL - pt will need 14 day course second to bacteremia. Dr. Faustin following -pending authorization for home health/IV antibiotics. Midline will be placed and patient will continue 14-day course of Invanz to complete on 06/14/2024 Avoid constipation Stool softeners as needed PSA is greater than 30, Dr. Castano following Dr. Castano consulted for LUTS/UTI/elevated PSA. Would like evaluation for prostate abscess if pt not improving. Mr. Oneill has remained afebrile, nontoxic-appearing. White count down from 17 to 6.5 with vancomycin and Levaquin. Urine culture returned with ESBL E. coli. Resistant to Levaquin. Will change to Merrem. Patient will need long-term IV antibiotics (Merrem) but will withhold PICC until bacteremia ruled out. 1 of 2 cultures positive for gram-negative rods. Will need to await final culture results. E. coli bacteremia present. Second set blood cultures done on 06/01/2024 with 24 hours negative. Will request PICC. PICC placed with success per CXR on evening of 06/02/24. Strict I&O Postvoid residual, if greater than 400-[address] [facility] Condyloma/mass Dr. Padilla evaluated mass and feels it would be better managed per urology Dr. Castano evaluated pt and recommends vascular/general surgery for mass as it appears vascular per CT The surgical team above will do procedure together on Wednesday06/06/24 High blood pressure without current history of hypertension Patient used to take lisinopril, monitor and trend Blood pressure controlled VTE/GI prophylaxis Lovenox 30mg sc daily Discharge Plan: Home Plan to discharge in: 48-72 Hours - Code Status/Comfort Care Code Status Assessed: Yes (full) Critical Care: No
[2024-06-04 05:40] LABS: Absolute Basophils 0.1 K/uL (0-0.5); Absolute Eosinophils 0.4 K/uL (0-0.5); Absolute Lymphocytes (CBC) 1.8 K/uL (0.7-4.9); Absolute Monocytes 0.5 K/uL (0.1-1.3); Absolute Neutrophil 5.2 K/uL (1.8-8.0); Basophils % 1.1 % (0-1.3); Eosinophils % 4.8 % (0-4.4); Hematocrit 32.3 % (39.6-49.0); Hemoglobin 11.1 g/dL (13.6-17.9); Lymphocytes % 22.7 % (15.3-44.8); MCH 31.5 pg (27.0-35.0); MCHC 34.4 g/dL (32.0-36.0); MCV 91.8 fL (80-100); MPV 8.1 fL (7.6-11.3); Monocytes % 6.6 % (3.3-12.3); Neutrophils % 64.8 % (41.7-73.7); Nucleated Red Blood Cells % 0.1 % (0-0); Platelets 339 thou/uL (152-406); RBC Red Blood Cell Count 3.51 M/uL (4.33-5.43); Red Cell Distribution Width 13.5 % (12.1-15.2)
[2024-06-04 05:59] LABS: Albumin 2.4 g/dL (3.4-5.0); Albumin/Globulin Ratio 0.7 (1.1-1.8); Anion Gap 8.1 mEq/L (5.0-15.0); Bilirubin Total 0.2 mg/dL (0.2-1.0); Globulin 3.4 g/dL (2.3-3.5); Potassium 4.1 mEq/L (3.5-5.1); Protein, Total 5.8 g/dL (6.4-8.2)
--- NOTE | 2024-06-04 17:39 | P.PN ---
Date of Service: 06/04/24 Subjective Date of Service: 06/04/24 Chief Complaint: Dysuria x 4 days Subjective: No new changes, denies pain, no acute overnight events, awaiting abx setup Review of Systems 10-point ROS is otherwise unremarkable General: As per HPI Eyes: Unremarkable ENT: Unremarkable Respiratory: Unremarkable Cardiovascular: Unremarkable Gastrointestinal: Unremarkable Genitourinary: Dysuria Musculoskeletal: Unremarkable Integumentary: Unremarkable Neurological: Unremarkable Lymphatics: Unremarkable Physical Examination - Vital Signs reviewed, blood pressure controlled, afebrile - Physical Exam General: Alert, In no apparent distress, Oriented x3 HEENT: Atraumatic, Normocephalic Neck: Supple Respiratory: Clear to auscultation bilaterally, Other (Pectus carinatum) Cardiovascular: Normal pulses, Regular rate/rhythm Capillary refill: <2 Seconds Gastrointestinal: Normal bowel sound present x 4 quadrants, negative tenderness Musculoskeletal: No clubbing, No swelling Integumentary: Other (Condyloma to right groin) Neurological: Normal speech, Normal tone, Normal affect Lymphatics: No axilla or inguinal lymphadenopathy External genitalia: Deferred Rectal: Deferred Assessment And Plan UTI/acute prostatitis Patient does not appear excessively ill Urine culture 4+ gram-negative rods - ESBL E. coli Blood cultures 1 of 2 pending aerobic positive gram neg rods - awaiting pathogen IV antibiotics Vanco and p.o. Levaquin, changed on 05/31/24 to Merrem as UC shows E.coli ESBL - pt will need 14 day course second to bacteremia. Dr. Faustin following -pending authorization for home health/IV antibiotics. Midline will be placed and patient will continue 14-day course of Invanz to complete on 06/14/2024 Avoid constipation Stool softeners as needed PSA is greater than 30, Dr. Castano following Dr. Castano consulted for LUTS/UTI/elevated PSA. Would like evaluation for prostate abscess if pt not improving. Mr. Oneill has remained afebrile, nontoxic-appearing. White count down from 17 to 6.5 with vancomycin and Levaquin. Urine culture returned with ESBL E. coli. Resistant to Levaquin. Will change to Merrem. Patient will need long-term IV antibiotics (Merrem) but will withhold PICC until bacteremia ruled out. 1 of 2 cultures positive for gram-negative rods. Will need to await final culture res ults. E. coli bacteremia present. Second set blood cultures done on 06/01/2024 with 24 hours negative. Will request PICC. PICC placed with success per CXR on evening of 06/02/24. Strict I&O Postvoid residual, if greater than 400-[address] [facility] Condyloma/mass Dr. Padilla evaluated mass and feels it would be better managed per urology Dr. Castano evaluated pt and recommends vascular/general surgery for mass as it appears vascular per CT The surgical team above will do procedure together on Wednesday06/06/24 High blood pressure without current history of hypertension Patient used to take lisinopril, monitor and trend Tamsulosin q hs Blood pressure controlled VTE/GI prophylaxis Lovenox 30mg sc daily Discharge Plan: Home Plan to discharge in: 48-72 Hours - Code Status/Comfort Care Code Status Assessed: Yes (full) Critical Care: No
[2024-06-05 04:57] LABS: Absolute Eosinophils 0.4 K/uL (0-0.5); Absolute Lymphocytes (CBC) 1.9 K/uL (0.7-4.9); Absolute Monocytes 0.5 K/uL (0.1-1.3); Absolute Neutrophil 5.3 K/uL (1.8-8.0); Basophils % 0.3 % (0-1.3); Eosinophils % 4.7 % (0-4.4); Hematocrit 34.9 % (39.6-49.0); Hemoglobin 11.8 g/dL (13.6-17.9); Lymphocytes % 23.8 % (15.3-44.8); MCH 31.2 pg (27.0-35.0); MCHC 33.8 g/dL (32.0-36.0); MCV 92.3 fL (80-100); MPV 7.9 fL (7.6-11.3); Neutrophils % 65.2 % (41.7-73.7); Nucleated Red Blood Cells % 0.1 % (0-0); Platelets 356 thou/uL (152-406); RBC Red Blood Cell Count 3.78 M/uL (4.33-5.43); Red Cell Distribution Width 13.4 % (12.1-15.2)
[2024-06-05 05:32] LABS: Albumin 2.6 g/dL (3.4-5.0); Albumin/Globulin Ratio 0.7 (1.1-1.8); Anion Gap 5.3 mEq/L (5.0-15.0); Bilirubin Total 0.3 mg/dL (0.2-1.0); Globulin 3.7 g/dL (2.3-3.5); Potassium 4.3 mEq/L (3.5-5.1); Protein, Total 6.3 g/dL (6.4-8.2)
[2024-06-05] MEDS ORDERED: LIDOCAINE 1% MPF 5 ML VIAL ONE (07:46)
[2024-06-05] MEDS ORDERED: MIDAZOLAM HCL 2 MG/2 ML INJ ONE (07:47)
[2024-06-05] MEDS ORDERED: propofoL 200 MG/20 ML VIAL IV ONE (07:47)
[2024-06-05] MEDS ORDERED: FENTANYL CITR 100 MCG/2 ML ONE (07:47)
[2024-06-05] MEDS: LIDOCAINE HCL/EPINEPHRINE 20 ML MDV ONE (08:02)
[2024-06-05] MEDS: lisinopriL 5 MG TAB PO SCH (08:11)
[2024-06-05] MEDS: Ringers Lactate 1,000 ML IV ONE (08:37)
[2024-06-05] MEDS: CEFAZOLIN SODIUM 2 GM/VIAL ONE (08:55)
[2024-06-05] MEDS ORDERED: GLYCOPYRROLATE 0.2 MG/ML SYR ONE (09:13)
[2024-06-05] MEDS ORDERED: EPHEDRINE SULF 50 MG/ML VIAL ONE (09:31)
[2024-06-05] MEDS: BACITRACIN OINTMENT 14 GM TUBE TOP ONE (09:57)
[2024-06-05 11:18] VITALS: O2SAT 95
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
--- NOTE | 2024-06-05 13:11 | PN ---
Subjective: The patient had surgical debridement done by Dr. Castano. The patient denies any headac he, nausea, vomiting, chest pain, abdominal pain, constipation, or diarrhea. Objective: Vital Signs: Reviewed. Lungs: Basal crackles. Heart: S1, S2. Regular. Abdomen: Soft, nontender. Bowel sounds present. Extremities: No edema. Laboratory Data: WBC 8.1, hemoglobin 11.8, platelets are 356. Chemistry shows BUN of 17, creatinine 0.6. Assessment And Plan: Bacteremia secondary to Escherichia coli extended-spectrum beta-lactamase. The patient is currently being treated with meropenem. Moderate protein-calorie malnourishment, anemia of chronic disease. Leukocytosis, well controlled. We will follow patient as needed. NF/MODL Voice ID: [id number] Report ID: [id number]
[2024-06-05] MEDS: ERTAPENEM SODIUM 1 GM VIAL IVPB ONE (14:28)
--- NOTE | 2024-06-05 23:47 | P.PN ---
Date of Service: 06/05/24 Subjective N.p.o. for surgical eval today with Dr. Castano Review of Systems 10-point ROS is otherwise unremarkable Physical Examination - Vital Signs reviewed - Physical Exam General: Alert, In no apparent distress, Oriented x3 HEENT: Atraumatic, Normocephalic Neck: Supple Respiratory: Clear to auscultation bilaterally, equal unlabored Cardiovascular: Normal pulses, Regular rate/rhythm Capillary refill: <2 Seconds Gastrointestinal: Nontender, soft Musculoskeletal: No clubbing, No swelling Integumentary: Other Neurological: Normal speech, Normal tone, Normal affect Lymphatics: No axilla or inguinal lymphadenopathy Assessment And Plan Complicated UTI/acute prostatitis ESBL of the urine Bacteremia Urine culture 4+ gram-negative rods - ESBL E. coli Blood cultures 1 of 2 pending aerobic positive gram neg rods - awaiting pathogen IV antibiotics Vanco and p.o. Levaquin, changed on 05/31/24 to Merrem as UC shows E.coli ESBL - pt will need 14 day course second to bacteremia. Dr. Faustin following -pending authorization for home health/IV antibiotics. Midline will be placed and patient will continue 14-day course of Invanz to complete on 06/14/2024 PSA is greater than 30, Dr. Castano following Dr. Castano consulted for LUTS/UTI/elevated PSA. Would like evaluation for pro state abscess if pt not improving. vancomycin and Levaquin. Urine culture returned with ESBL E. coli. Resistant to Levaquin. Transition to Merrem. Patient will need long-term IV antibiotics (Merrem) but will withhold PICC until bacteremia ruled out. 1 of 2 cultures positive for gram-negative rods. Will need to await final culture results. E. coli bacteremia present. Second set blood cultures done on 06/01/2024 with 24 hours negative. PICC placed to discharge home with IV Invanz after discharge-total of 14 days home health being arranged Strict I&O Postvoid residual, if greater than 400-[address] [place] Tamsulosin q hs Condyloma/mass Dr. Padilla evaluated mass and feels it would be better managed per urology Dr. Castano evaluated pt and recommends vascular/general surgery for mass as it appears vascular per CT The surgical team above will do procedure together on Wednesday06/06/24 hypertension Resume home antihypertensive Blood pressure controlled VTE/GI prophylaxis Lovenox 30mg sc daily Discharge Plan: Home Plan to discharge in: 48-72 Hours - Code Status/Comfort Care Code Status Assessed: Yes (full) Critical Care: No
[2024-06-06 06:18] LABS: Anion Gap 7.1 mEq/L (5.0-15.0); Magnesium 2.2 mg/dL (1.6-2.4); Potassium 4.1 mEq/L (3.5-5.1)
[2024-06-06] MEDS: BISACODYL E.C. 5 MG TAB PO ONE (10:12)
[2024-06-06] MEDS ORDERED: BISACODYL E.C. 5 MG TAB PO PRN (10:13)
--- NOTE | 2024-06-06 15:06 | P.PN ---
Date of Service: 06/06/24 Subjective Status post excision right groin condylomatous, incision clean dry and intact Pain control as needed analgesia Review of Systems 10-point ROS is otherwise unremarkable Physical Examination - Vital Signs reviewed - Physical Exam General: Alert, In no apparent distress, Oriented x3 HEENT: Atraumatic, Normocephalic Neck: Supple Respiratory: Clear to auscultation bilaterally, Cardiovascular: Normal pulses, Regular rate/rhythm Capillary refill: <2 Seconds Gastrointestinal: Nontender, soft Musculoskeletal: No clubbing, No swelling Integumentary: Other, right groin incision clean dry and intact Neurological: Normal speech, Normal tone, Normal affect Lymphatics: No axilla or inguinal lymphadenopathy Assessment And Plan Complicated UTI/acute prostatitis ESBL of the urine Bacteremia Urine culture 4+ gram-negative rods - ESBL E. coli Blood cultures 1 of 2 pending aerobic positive gram neg rods - awaiting pathogen IV antibiotics Vanco and p.o. Levaquin, changed on 05/31/24 to Merrem as UC shows E.coli ESBL - pt will need 14 day course second to bacteremia. Dr. Faustin following -pending authorization for home health/IV antibiotics. Midline will be placed and patient will continue 14-day course of Invanz to complete on 06/14/2024 PSA is greater than 30, Dr. Castano following Dr. Castano consulted for LUTS/UTI/elevated PSA. Would like evaluation for prostate abscess if pt not improving. vancomycin and Levaquin. Urine culture returned with ESBL E. coli. Resistant to Levaquin. Transition to Merrem. Patient will need long-term IV antibiotics (Merrem) but will withhold PICC until bacteremia ruled out. 1 of 2 cultures positive for gram-negative rods. Will need to await final culture results. E. coli bacteremia present. Second set blood cultures done on 06/01/2024 with 24 hours negative. PICC placed to discharge home with IV Invanz after discharge-total of 14 days home health being arranged Strict I&O Postvoid residual, if greater than 400-[address] [place] Tamsulosin q hs Condyloma/mass 3 penile lesons, right and interriginous mass, 06/05 Status post excision of Condyloma/mass (Dr Castano/Randy) Dr. Padilla evaluated mass and feels it would be better managed per urology Dr. Castano evaluated pt and recommends vascular/general surgery for mass as it appears vascular per CT Follow up with Dr Castano after discharge, 3-4 weeks, for Cystoscopy and Digital rectal exam, follow up with surgical pathology report, DC medications, Flomax, hypertension Resume home antihypertensive Blood pressure controlled VTE/GI prophylaxis Lovenox 30mg sc daily Discharge Plan: Home Plan to discharge in: 48-72 Hours - Code Status/Comfort Care Code Status Assessed: Yes (full) Critical Care: No
[2024-06-07 05:05] LABS: Anion Gap 4.9 mEq/L (5.0-15.0); Potassium 3.9 mEq/L (3.5-5.1)
--- NOTE | 2024-06-07 06:36 | P.DS ---
Admission Date: 05/29/24 Discharge Date: 06/07/24 Disposition: DC HOME/HOME HEALTH CARE Discharge Condition: FAIR Reason for Admission: Dysuria x 4 days Brief History of Present Illness: Mr. Oneill is a 74-year-old male who denies any significant past medical history. He has no medication allergies and takes no daily medications. He worked at [employer] for 49 years and is now retired and is a "house ". Mr. Oneill has a 4-day history of dysuria, frequency, nocturia. He states he was scared to go to sleep as he knew he had some type of infection. - Physical Exam General: Alert, In no apparent distress, Oriented x3 HEENT: Atraumatic, Normocephalic Neck: Supple Respiratory: Clear to auscultation bilaterally, Cardiovascular: Normal pulses, Regular rate/rhythm Capillary refill: <2 Seconds Gastrointestinal: Nontender, soft Musculoskeletal: No clubbing, No swelling Integumentary: Other, right groin incision clean dry and intact Neurological: Normal speech, Normal tone, Normal affect Lymphatics: No axilla or inguinal lymphadenopathy Hospital Course: Nino is a 74-year-old male who denies any significant past medical history. He has no medication allergies and takes no daily medications. He worked at [employer] for 49 years and is now retired and is a "house ". Mr. Oneill has a 4- day history of dysuria, frequency, nocturia. He states he was scared to go to sleep as he knew he had some type of infection he was noted to have complicated UTI. ESBL of the urine, condyloma, he was seen by surgery, urology, status post excision of 4 penile lesions. He needs to follow-up with urology after discharge. Plan to discharge home with home health care with IV Merrem Discharged home on Invanz IV for complicated UTI-last dose 06-14-24 Flomax, Follow-up with Dr. Castano-Dr. Castano Follow up with Dr Castano after discharge, 3-4 weeks, PSA 24 to 48 hours prior to outpatient for Cystoscopy and Digital rectal exam, follow up with surgical pathology report, NE medications, Flomax, - Follow up with Dr Padilla after discharge, call office for apt Assessment Complicated UTI/acute prostatitis discharged home on Invanz-patient was seen with Dr. Faustin while inpatient. ESBL of the urine-will discharge home on Invanz daily, complicated UTI/Urosepsis DC home on IV merropenem [facility] severe obstructive and irritative LUTS, complicated by infection/UTI possible prostatitis due to ESBL E. coli on meropenem, changed to Invanz after discharge gross hematuria and pelvic pain, Bacteremia-repeat blood cultures negative Protein calorie malnutrition, supplements after discharge Condyloma/mass-06/05 Status post excision of Condyloma/mass (Dr Castano/Randy) 3 penile lesons, right and interriginous mass, Continue home medicines as previously prescribed GOAL: Clear understanding of disease process INSTRUCTIONS: Physician Discharge Instructions: Follow up with Dr Padilla after discharge, call office for apt -Follow-up with urology after discharge -Follow-up with PCP in 1 to 2 weeks -Please call Dr. Aragon at [phone] if any questions regarding hospital stay -Please call nursing station at [phone] if any nursing or medication questions -Return to the emergency room if symptoms worsen Diet: ADA, low sodium Activity: Fall precautions Vital Signs/Physical Exam: Temp Pulse Resp BP Pulse Ox 98.5 F 75 16 135/84 99 06/07/24 04:00 06/07/24 04:00 06/07/24 04:00 06/07/24 04:00 06/07/24 04:00 Laboratory Data at Discharge: WBC 8.10 thou/uL (4.3-10.9) 06/05/24 04:40 Hgb 11.8 g/dL (13.6-17.9) L 06/05/24 04:40 Hct 34.9 % (39.6-49.0) L 06/05/24 04:40 Plt Count 356 thou/uL (152-406) 06/05/24 04:40 PT 11.8 SECONDS (9.4-12.5) 05/29/24 14:30 INR 1.13 05/29/24 14:30 APTT 29.8 SECONDS (24.3-36.9) 05/29/24 14:30 Sodium 140 mEq/L (136-145) 06/07/24 04:39 Potassium 3.9 mEq/L (3.5-5.1) 06/07/24 04:39 BUN 18 mg/dL (7-18) 06/07/24 04:39 Creatinine 0.61 mg/dL (0.70-1.30) L 06/07/24 04:39 Glucose 145 mg/dL (74-106) H 06/07/24 04:39 Magnesium 2.0 mg/dL (1.6-2.4) 06/07/24 04:39 Total Bilirubin 0.3 mg/dL (0.2-1.0) 06/05/24 04:40 AST 35 U/L (15-37) 06/05/24 04:40 ALT 29 U/L (16-61) 06/05/24 04:40 Alkaline Phosphatase 77 U/L (45-117) 06/05/24 04:40 Home Medications: Codeine/APAP [Tylenol W/Codeine #3 tab] 1 tab PO Q6HP PRN 5 Days #15 tab 06/07/24 Tamsulosin [Flomax] 0.4 mg PO BEDTIME #30 cap 06/07/24 New Medications: Tamsulosin [Flomax] 0.4 mg PO BEDTIME #30 cap Codeine/APAP [Tylenol W/Codeine #3 tab] 1 tab PO Q6HP PRN 5 Days #15 tab PRN Reason: Pain Physician Discharge Instructions: Assessment complicated UTI/Urosepsis severe obstructive and irritative LUTS, complicated by infection/UTI possible prostatitis due to ESBL E. coli on meropenem, gross hematuria and pelvic pain, enlarging right inguinal scrotal intertriginous 7-8 cm fungating mass family history of prostate cancer in his father. Discharge medications -Flomax 0.4 mg daily recommended -PSA 24 to 48 hours prior to outpatient follow-up for cystoscopy in approximately 3 weeks Diet: Regular Activity: Ad tico Followup: NONE,NONE [Primary Care Provider] - Brian Padilla MD [ACTIVE - CAN ADMIT] - 1-2 Weeks Balaji Castano [ACTIVE - CAN ADMIT] - 1-2 Weeks Time spent managing pt's care (in minutes): 45
[2024-06-07 12:10] VITALS: BP 134/82; TEMP 98.5
[2024-06-07] MEDS: ERTAPENEM NA 1 GM in NA CHLORIDE 0.9% 100 ML IVPB ONE (13:13)
[2024-06-07] MEDS ORDERED: ERTAPENEM NA 1 GM in NA CHLORIDE 0.9% 100 ML IVPB SCH (16:00)
== END 2024-06-07 14:23 | disposition home health service (06) | DRG 709 ==
LOC: ER 10:43 → ERHOLD 14:34 → 2ND 15:36
PROVIDERS: ADMIT Hospitalist; ATTEND Hospitalist
PROC: 02HV33Z Insertion of Infusion Device into Superior Vena Cava, Percutaneous Approach (ICD-10-PCS; 2024-06-02)
PROC: 0DBQ0ZZ Excision of Anus, Open Approach (ICD-10-PCS; 2024-06-05)
PROC: 0HBAXZZ Excision of Inguinal Skin, External Approach (ICD-10-PCS; 2024-06-05)
PROC: 0VBS0ZZ Excision of Penis, Open Approach (ICD-10-PCS; principal; 2024-06-05 08:00)
DX: N41.0 Acute prostatitis (principal); E44.0 Moderate protein-calorie malnutrition; N39.0 Urinary tract infection, site not specified; G81.91 Hemiplegia, unspecified affecting right dominant side; Z16.12 Extended spectrum beta lactamase (ESBL) resistance; R78.81 Bacteremia; Z16.29 Resistance to other single specified antibiotic; A63.0 Anogenital (venereal) warts; N48.9 Disorder of penis, unspecified; D63.8 Anemia in other chronic diseases classified elsewhere; F17.210 Nicotine dependence, cigarettes, uncomplicated; N40.1 Benign prostatic hyperplasia with lower urinary tract symptoms; R31.0 Gross hematuria; R39.14 Feeling of incomplete bladder emptying; R39.16 Straining to void; R39.15 Urgency of urination; R35.0 Frequency of micturition; R35.1 Nocturia; R03.0 Elevated blood-pressure reading, without diagnosis of hypertension; B96.20 Unspecified Escherichia coli [E. coli] as the cause of diseases classified elsewhere; Z90.49 Acquired absence of other specified parts of digestive tract; Z88.8 Allergy status to other drugs, medicaments and biological substances; Z80.42 Family history of malignant neoplasm of prostate; Z71.6 Tobacco abuse counseling; Z68.21 Body mass index [BMI] 21.0-21.9, adult
CPT/HCPCS: 36415; 71045; 74177; 80048; 80053; 80202; 81001; 83605; 83735; 84145; 85025; 85610; 85730; 87040; 87077; 87086; 87088; 87186; 88305; 93005; 96365; 99285; G0103; J0696; J1335; J1650; J2003; J2185; J2250; J2704; J3010; J7030; J7050; J7120; Q9967

== ENCOUNTER 2024-07-26 06:20 | Day surgery (SDC) | payer OTHER ==
[2024-07-25 14:25] LABS: Absolute Basophils 0.1 K/uL (0-0.5); Absolute Eosinophils 0.1 K/uL (0-0.5); Absolute Lymphocytes (CBC) 1.9 K/uL (0.7-4.9); Absolute Monocytes 0.5 K/uL (0.1-1.3); Absolute Neutrophil 5.4 K/uL (1.8-8.0); Basophils % 1.2 % (0-1.3); Eosinophils % 1.1 % (0-4.4); Hematocrit 36.2 % (39.6-49.0); Hemoglobin 12.3 g/dL (13.6-17.9); Lymphocytes % 23.8 % (15.3-44.8); MCH 30.5 pg (27.0-35.0); MCV 89.6 fL (80-100); MPV 8.7 fL (7.6-11.3); Monocytes % 5.9 % (3.3-12.3); Nucleated Red Blood Cells % 0.1 % (0-0); Platelets 290 thou/uL (152-406); RBC Red Blood Cell Count 4.04 M/uL (4.33-5.43)
[2024-07-25 14:39] LABS: Anion Gap 5.6 mEq/L (5.0-15.0); Potassium 3.6 mEq/L (3.5-5.1)
[2024-07-26] MEDS ORDERED: Ringers Lactate 1,000 ML IV ONE (06:41)
[2024-07-26] MEDS ORDERED: MIDAZOLAM HCL 2 MG/2 ML INJ ONE (06:59)
[2024-07-26] MEDS ORDERED: LIDOCAINE 2% MPF 5 ML VIAL ONE (06:59)
[2024-07-26] MEDS ORDERED: ONDANSETRON 4 MG/2 ML VIAL ONE (06:59)
[2024-07-26] MEDS ORDERED: FENTANYL CITR 100 MCG/2 ML ONE (06:59)
[2024-07-26] MEDS ORDERED: propofoL 200 MG/20 ML VIAL IV ONE (06:59)
[2024-07-26] MEDS: CEFAZOLIN SODIUM 2 GM/VIAL ONE (07:30)
[2024-07-26] MEDS ORDERED: dexAMETHasone 4 MG/ML VIAL ONE (07:47)
--- NOTE | 2024-07-26 08:20 | P.OP ---
Date of Service: 07/26/24 Preop diagnosis: Perirectal mass Postop diagnosis: Condyloma and hemorrhoids Procedure performed: Examiner anesthesia, proctoscopy, wide excision of perianal mass and hemorrhoidectomy x 2 Surgeon: Brian Padilla MD Hvac Operations Technician: None Estimated blood loss: Minimal Specimen: Condyloma in the perianal region and hemorrhoids x 2 Findings: As above Anesthesia: General Complications: None Drains: None Fluids and blood products: None applicable Disposition: Recovery room Operative note: Patient brought to the OR and placed in the supine position. General anesthesia began. Patient placed lithotomy position. Patient prepped and draped in usual sterile fashion. Exam under anesthesia and proctoscopy revealed perianal condyloma, left lateral external hemorrhoid and a right lateral external hemorrhoid. Marcaine 0.5% infiltrated locally. Cautery and harmonic scalpel used to excise the perianal condyloma and the external hem orrhoids. Bleeding controlled with cautery. Patient had 2 small intraluminal condyloma proximal to the dentate line. These were excised as well. No evidence of bleeding was noted. Sterile dressing was applied. Patient was awakened and taken to recovery room in good general condition. CC:
[2024-07-26] MEDS ORDERED: HYDROCODONE/APAP 7.5/325 MG TAB PO PRN (08:25)
[2024-07-26 08:56] VITALS: O2SAT 95
[2024-07-26 10:06] VITALS: TEMP 97.6
[2024-07-26 10:08] VITALS: BP 140/79
== END 2024-07-26 09:53 | disposition home or self-care (01) ==
LOC: OR 06:20
PROVIDERS: ATTEND Surgery
PROC: 0DJD8ZZ Inspection of Lower Intestinal Tract, Via Natural or Artificial Opening Endoscopic (ICD-10-PCS; 2024-07-26)
PROC: 0DBQ0ZX Excision of Anus, Open Approach, Diagnostic (ICD-10-PCS; 2024-07-26)
PROC: 06BY0ZC Excision of Hemorrhoidal Plexus, Open Approach (ICD-10-PCS; principal; 2024-07-26 07:30)
DX: A63.0 Anogenital (venereal) warts (principal); K64.4 Residual hemorrhoidal skin tags; K62.89 Other specified diseases of anus and rectum
CPT/HCPCS: 85025; 80048; 36415; 88304; 88305; 46250; 45300; 46922; J2704; J1100; J2003; J2250; J3010; J2405; J7120

== ENCOUNTER 2024-10-03 11:22 | Day surgery (SDC) | payer OTHER ==
[2024-09-21 11:45] LABS: Absolute Basophils 0.1 K/uL (0-0.5); Absolute Eosinophils 0.1 K/uL (0-0.5); Absolute Lymphocytes (CBC) 1.3 K/uL (0.7-4.9); Absolute Monocytes 0.4 K/uL (0.1-1.3); Absolute Neutrophil 4.6 K/uL (1.8-8.0); Basophils % 1.3 % (0-1.3); Eosinophils % 1.1 % (0-4.4); Hematocrit 36.9 % (39.6-49.0); Hemoglobin 12.8 g/dL (13.6-17.9); Lymphocytes % 19.6 % (15.3-44.8); MCH 30.4 pg (27.0-35.0); MCHC 34.6 g/dL (32.0-36.0); MCV 87.8 fL (80-100); MPV 8.9 fL (7.6-11.3); Monocytes % 6.3 % (3.3-12.3); Neutrophils % 71.7 % (41.7-73.7); Nucleated Red Blood Cells % 0.1 % (0-0); Platelets 268 thou/uL (152-406)
[2024-09-21 11:58] LABS: Anion Gap 8.9 mEq/L (5.0-15.0); Potassium 3.9 mEq/L (3.5-5.1)
[2024-10-03] MEDS: Ringers Lactate 1,000 ML IV ONE (11:55)
[2024-10-03] MEDS ORDERED: FENTANYL CITR 100 MCG/2 ML ONE (14:00)
[2024-10-03] MEDS ORDERED: LIDOCAINE 1% MPF 5 ML VIAL ONE (14:00)
[2024-10-03] MEDS ORDERED: propofoL 200 MG/20 ML VIAL IV ONE (14:00)
[2024-10-03] MEDS ORDERED: MIDAZOLAM HCL 2 MG/2 ML INJ ONE (14:00)
[2024-10-03] MEDS: CEFAZOLIN SODIUM 1 GM/VIAL ONE (14:25)
[2024-10-03] MEDS ORDERED: dexAMETHasone 4 MG/ML VIAL ONE (15:20)
[2024-10-03] MEDS ORDERED: KETOROLAC 30 MG/ML INJ ONE (15:20)
[2024-10-03] MEDS ORDERED: ONDANSETRON 4 MG/2 ML VIAL ONE (15:20)
[2024-10-03] MEDS ORDERED: HYDROCODONE/APAP 5/325 MG TAB PO PRN (15:29)
--- NOTE | 2024-10-03 15:50 | P.OP ---
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 Radiation oncology consultation was performed, but they did not feel like they could adequately radiate the area and recommended resection to ensure a negative margin. Procedure note: The patient was consented in the preoperative holding area before being transferred to the operative suite where general anesthesia was induced. He was given Ancef 2 g IV antimicrobial prophylaxis, and pneumoboots were provided for DVT prophylaxis. He was placed in the lithotomy position, padded and secured to the table appropriately. His genitalia was shaved, prepped with Betadine, and draped in standard fashion. The region around the left intertriginous scar was marked as a oblong ellipse to ensure a margin of at least 3 to 5 mm on each side of the scar. I then incised the entire ellipse after injecting subcutaneous quarter percent Marcaine. A liberal resection into the subcutaneous fat was performed taking at least 3 to 5 mm of tissue on the deep side. An additional 3 to 5 mm of deeper tissue into the fat overlying the fascia federico was also taken until only the fascia lotta was present at the deep margin. The deep resection tissue was sent for frozen section analysis with a suture marking the deep resection margin. Frozen section analysis was performed and returned negative, only fibroadipose tissue seen. As a result, I irrigated the area and achieved hemostasis using electrocautery, before reapproximating the subcutaneous fat over the Dennys's tissue using 3-0 Vicryl suture in an interrupted fashion. I then placed several interrupted sutures of 3-0 silk suture to reapproximate the skin edges since there was a wide gap approximately 3 to 4 cm that was bring brought together, to ensure lack of opportunity for dehiscence. A Xeroform gauze was applied along with 4 x 4's and an ABD pad, which was then taped in place using Patel pore tape before the patient was taken out of the lithotomy position, awakened from general anesthesia, transferred to a stretcher, and then transferred to the recovery room in good condition. Complications: None Discharge disposition: Follow-up should be established within 14 to 21 days to cut out and remove all the silk sutures. We will discuss the pathology of the resection at that time; though the frozen section pathology of the deepest margin was negative for malignancy.
[2024-10-03 17:57] VITALS: BP 155/83; TEMP 97.3; O2SAT 98
== END 2024-10-03 17:33 | disposition home or self-care (01) ==
LOC: OR 11:22
PROVIDERS: ATTEND Urology
PROC: 0JBB0ZZ Excision of Perineum Subcutaneous Tissue and Fascia, Open Approach (ICD-10-PCS; principal; 2024-10-03 13:45)
DX: A63.0 Anogenital (venereal) warts (principal); C44.92 Squamous cell carcinoma of skin, unspecified; N40.1 Benign prostatic hyperplasia with lower urinary tract symptoms; R97.20 Elevated prostate specific antigen [PSA]; L90.5 Scar conditions and fibrosis of skin; Z80.42 Family history of malignant neoplasm of prostate
CPT/HCPCS: 11406; 85025; 80048; 36415; 88331; 88332; 88305; J2704; J1100; J2003; J2250; J3010; J2405; J7120; J0690